=== PATIENT | male | born 1960 | race African-American/Black ===

== ENCOUNTER 2019-10-01 09:20 | Emergency (ER) | payer BC ==
[~2019-10-01] VITALS: Ht 182.9 cm; Wt 60.0 kg
[2019-10-01 09:20] VITALS: BP 61/46
== END 2019-10-01 09:48 | disposition expired ==
LOC: ER 09:39
DX: I46.9 Cardiac arrest, cause unspecified (principal); Z85.118 Personal history of other malignant neoplasm of bronchus and lung
CPT/HCPCS: 31500; 36680; 82962; 99285